=== PATIENT | female | born 1995 | race Caucasian/White ===

== ENCOUNTER 2016-11-02 11:52 | Emergency (ER) | payer BC ==
[2016-11-02 12:00] VITALS: BP 128/74
--- NOTE | 2016-11-02 12:24 | UC ---
Abdominal Pain Female HPI - HPI Summary HPI Summary: This is an otherwise healthy 20 yo female who presented with c/o headache and vomiting. ALMANZAR started last night and vomited once this am. No abdominal pain. Some soft stools. No fevers. Some chills. Currently menstruating. Patient reports sick contacts with similar symptoms. - History of Current Complaint Chief Complaint: UCGeneralIllness Stated Complaint: VOMITING Hx Last Menstrual Period: 10/17/16 Allergies/Adverse Reactions: Allergies Allergy/AdvReac Type Severity Reaction Status Date / Time No Known Allergies Allergy Verified 11/02/16 11:59 Home Medications: Home Medications Nexplanon 11/02/16 [History] PMH/Surg Hx/FS Hx/Imm Hx Previously Healthy: Yes - Surgical History Surgical History: Yes Surgery Procedure, Year, and Place: T & A 2014. Sinus surgery 2014 - Social History Alcohol Use: None Substance Use Type: None Smoking Status (MU): Never Smoked Tobacco - Immunization History Most Recent Influenza Vaccination: 05/2013 Vaccination Up to Date: Yes Review of Systems Constitutional: Negative Skin: Negative Eyes: Negative ENT: Negative Respiratory: Negative Cardiovascular: Negative Gastrointestinal: Abdominal Pain, Vomiting, Diarrhea Genitourinary: Negative Motor: Negative Neurovascular: Negative Musculoskeletal: Negative Neurological: Negative Psychological: Negative All Other Systems Reviewed And Are Negative: Yes Physical Exam Triage Information Reviewed: Yes Appearance: Well-Appearing Vital Signs: Initial Vital Signs Temp 98.1 F 11/02/16 11:55 Pulse 55 11/02/16 11:55 Resp 16 11/02/16 11:55 BP 128/74 11/02/16 11:55 Pulse Ox 100 11/02/16 11:55 Vital Signs Reviewed: Yes ENT: Positive: Normal ENT inspection Neck: Positive: Supple, Nontender, No Lymphadenopathy Respiratory: Positive: Chest non-tender, Lungs clear, Normal breath sounds. Negative: Crackles, Rhonchi, Wheezing Cardiovascular: Positive: RRR, No Murmur Abdomen Description: Positive: Nontender, Soft. Negative: CVA Tenderness (R), CVA Tenderness (L) Bowel Sounds: Positive: Present Skin Exam: Normal Skin: Positive: rashes Abd Pain Female Course/Dx - Course Course Of Treatment: This is an otherwise healthy female with symptoms of acute gastroenteritis. Recommend supportive care. - Differential Dx/Diagnosis Differential Diagnosis: Constipation, Diverticulitis, Irritable Bowel Syndrome Provider Diagnoses: Viral gastroenteritis Discharge - Discharge Plan Condition: Stable Disposition: HOME Patient Education Materials: Gastroenteritis (ED) Forms: *Work Release Referrals: [facility] LAMA,Robert [Primary Care Provider] - If Needed Additional Instructions: Activity : As tolerated Instructions: 1. Use the Zofran you have at home as needed for nausea/vomiting 2. You may develop diarrhea 3. Keep up with your hydration with sips of gingerale or watered down gatorade 4. Maintain a bland diet
== END 2016-11-02 12:34 | disposition home or self-care (01) ==
LOC: UCCORT 11:52
DX: A08.4 Viral intestinal infection, unspecified (principal)
CPT/HCPCS: 99201; G0463

== ENCOUNTER 2019-01-30 20:21 | Emergency (ER) | payer SELFPAY ==
[2019-01-30] MEDS ORDERED: Levalbuterol 1.25MG/0.5ML NEB INH ONE (20:34)
[2019-01-30 20:37] VITALS: BP 150/77
[2019-01-30] MEDS ORDERED: Levalbuterol 0.63MG/3ML NEB* UNIT OF USE INH ONE (20:37)
--- NOTE | 2019-01-30 20:46 | UC ---
Respiratory Complaint HPI - HPI Summary HPI Summary: Pt presents with c/o SOB, wheezing X 2 days. Pt denies hx of asthma. - History of Current Complaint Chief Complaint: UCGeneralIllness Stated Complaint: CHEST CONGESTION Time Seen by Provider: 01/30/19 20:30 Hx Obtained From: Patient Hx Last Menstrual Period: nexplanon ?: No Onset/Duration: Sudden Onset, Lasting Days, Still Present Timing: Constant Severity Initially: Mild Severity Currently: Moderate Pain Intensity: 7 Character: Cough: Nonproductive Aggravating Factors: Deep Breaths, Recumbent Position, Other - exertion Alleviating Factors: Nothing Associated Signs And Symptoms: Positive: Wheezing - Risk Factors Pulmonary Embolism Risk Factors: Negative Cardiac Risk Factors: Negative Pseudomonas Risk Factors: Negative Tuberculosis Risk Factors: Negative - Allergies/Home Medications Allergies/Adverse Reactions: Allergies Allergy/AdvReac Type Severity Reaction Status Date / Time No Known Allergies Allergy Verified 01/30/19 20:30 Home Medications: Home Medications D-Methorphan/PE/Acetaminophen [Daytime Cold-Flu Softgel] 2 each PO ONCE PRN [History Confirmed 01/30/19] PMH/Surg Hx/FS Hx/Imm Hx Previously Healthy: Yes - Surgical History Surgical History: Yes Surgery Procedure, Year, and Place: T & A 2014. Sinus surgery 2014 - Family History Known Family History: Positive: Cardiac Disease - Social History Occupation: Employed Full-time Lives: With Family Alcohol Use: Weekly Substance Use Type: None Smoking Status (MU): Never Smoked Tobacco Have You Smoked in the Last Year: No - Immunization History Most Recent Influenza Vaccination: 05/2013 Vaccination Up to Date: Yes Review of Systems All Other Systems Reviewed And Are Negative: Yes Constitutional: Positive: Negative Skin: Positive: Negative Eyes: Positive: Negative ENT: Positive: Negative Respiratory: Positive: Cough, Other - wheezing, sob Cardiovascular: Positive: Negative Gastrointestinal: Positive: Negative Genitourinary: Positive: Negative Motor: Positive: Negative Neurovascular: Positive: Negative Musculoskeletal: Positive: Negative Neurological: Positive: Negative Psychological: Positive: Negative Is Patient Immunocompromised?: No Physical Exam Triage Information Reviewed: Yes Appearance: Well-Appearing Vital Signs: Initial Vital Signs Temp 98.5 F 01/30/19 20:32 Pulse 96 01/30/19 20:32 Resp 26 01/30/19 20:32 BP 150/77 01/30/19 20:32 Pulse Ox 100 01/30/19 20:32 Vital Signs Reviewed: Yes Eye Exam: Normal ENT Exam: Normal Dental Exam: Normal Neck exam: Normal Respiratory: Positive: Wheezing - bilateral upper lobes, Expiration, Inspiration Cardiovascular Exam: Normal Musculoskeletal Exam: Normal Neurological Exam: Normal Psychological Exam: Normal Skin Exam: Normal Respiratory Course/Dx - Differential Dx/Diagnosis Differential Diagnosis/HQI/PQRI: Asthma, Bronchitis Provider Diagnosis: Wheezing, Reactive airway disease Discharge - Sign-Out/Discharge Documenting (check all that apply): Patient Departure All imaging exams completed and their final reports reviewed: No Studies - Discharge Plan Condition: Stable Disposition: HOME Prescriptions: Albuterol HFA INHALER* [Ventolin HFA Inhaler*] 1 - 2 puff INH Q4H PRN #1 mdi PRN Reason: Sob/Wheezing Cetirizine* [ZyrTEC 10 MG TAB*] 10 mg PO DAILY #10 tab Montelukast Sodium TAB* [Singulair TAB*] 10 mg PO BEDTIME #10 tab predniSONE TAB* [Deltasone 10 MG TAB*] 30 mg PO DAILY #12 tab Patient Education Materials: Wheezing (ED) Referrals: [facility] [place] [facility] [Outside] - If Needed No Primary Care Phys,NOPCP [Primary Care Provider] - - Billing Disposition and Condition Condition: STABLE Disposition: Home
== END 2019-01-30 20:59 | disposition home or self-care (01) ==
LOC: UCCORT 20:21
DX: J45.909 Unspecified asthma, uncomplicated (principal)
CPT/HCPCS: 99212; A9270-GY; G0463